=== PATIENT | male | born 1975 | race Two or more races ===

== ENCOUNTER 2023-10-23 19:28 | Emergency (ER) | payer MEDICAID ==
[~2023-10-23] VITALS: Ht 167.6 cm; Wt 89.1 kg
[2023-10-23 19:32] VITALS: BP 139/65; PULSE 114; RESP 16; TEMP 98; O2SAT 97
[2023-10-23] MEDS ORDERED: DOXY-354 PO (20:21)
[2023-10-23] MEDS: DOXYCYCLINE HYCLATE 100 MG TABLET PO ONE (20:45)
== END 2023-10-23 20:44 | disposition home or self-care (01) ==
LOC: EMS 19:28
DX: L02.611 Cutaneous abscess of right foot (principal)
CPT/HCPCS: 10060; 99283